=== PATIENT | male | born 1975 | race African-American/Black ===

== ENCOUNTER 2024-08-21 14:25 | Emergency (ER) | payer OTHER ==
[~2024-08-21] VITALS: Ht 167.6 cm; Wt 111.1 kg
[2024-08-21 16:52] VITALS: BP 143/75
[2024-08-21] MEDS ORDERED: VENTOLIN HFA18 GM INH (16:53)
== END 2024-08-21 16:50 | disposition home or self-care (01) ==
LOC: ED 14:25 → EDBD 14:28 → ED 14:28
DX: R51.9 Headache, unspecified (principal); H11.33 Conjunctival hemorrhage, bilateral; J45.909 Unspecified asthma, uncomplicated; Z98.890 Other specified postprocedural states
CPT/HCPCS: 70450; 99284-25

== ENCOUNTER 2024-12-29 11:33 | Emergency (ER) | payer OTHER ==
[~2024-12-29] VITALS: Ht 167.6 cm; Wt 111.1 kg
[~2024-12-29 11:33] MED LIST: VENTOLIN HFA18 GM INH
[2024-12-29 13:20] VITALS: BP 109/59
== END 2024-12-29 13:20 | disposition other institution, planned readmission (95) ==
LOC: ED 11:33
DX: L02.31 Cutaneous abscess of buttock (principal); J45.909 Unspecified asthma, uncomplicated; F43.10 Post-traumatic stress disorder, unspecified; Z88.0 Allergy status to penicillin
CPT/HCPCS: 10060; 99282-25